=== PATIENT | male | born 1980 | race Caucasian/White ===

== ENCOUNTER 2019-12-19 09:51 | Outpatient (NON) | payer OTHER, SELFPAY ==
[2019-12-19 23:54] LABS: SARS-CoV-2 RNA PCR Negative
== END 2019-12-19 09:52 ==
PROVIDERS: Visit Provider Family Medicine
DX: Z20.828 Contact with and (suspected) exposure to other viral communicable diseases (principal); R11.0 Nausea; R19.7 Diarrhea, unspecified; R43.2 Parageusia; R43.0 Anosmia; M79.10 Myalgia, unspecified site
CPT/HCPCS: 87635; C9803; U0003

== ENCOUNTER 2020-08-24 08:56 | Outpatient (CLI) | payer BC, SELFPAY ==
--- NOTE | ~2020-08-24 | US_ITS ---
EXAMINATION: US abdomen complete DATE: 08/24/2020 09:42 INDICATION: Left upper quadrant abdominal pain. TECHNIQUE: Multiple grayscale and Doppler ultrasound images of the abdomen were obtained. COMPARISON: None FINDINGS: The visualized portions of the head, body, and tail of the pancreas are normal. Abdominal a nallely is normal in caliber. Inferior vena cava is normal. There is a 1.5 cm hyperechoic mass in left h epatic lobe. No liver surface nodularity. There is normal flow in main portal vein. The gallbladder i s normal in size. No gallstones or gallbladder wall thickening. There was no sonographic Ashby sign. The common duct is normal and measures 3 mm. The spleen is normal in size. The kidneys are normal in size. IMPRESSION: 1. 1.5 cm hyperechoic liver mass. In the absence of known malignancy or chronic liver disease, this f inding is likely a benign lesion such as a hemangioma. Reviewed, dictated and finalized at location A. IMPRESSION: 1. 1.5 cm hyperechoic liver mass. In the absence of known malignancy or chronic liver disease, this finding is likely a benign lesion such as a hemangioma.
== END 2020-08-24 08:57 ==
PROVIDERS: PCP Family Medicine; Visit Provider Nurse Practitioner Family
DX: R10.9 Unspecified abdominal pain (principal)
CPT/HCPCS: 76700

== ENCOUNTER 2020-08-24 09:24 | Outpatient (CLI) | payer BC, SELFPAY ==
[2020-08-24 10:14] LABS: Alanine Aminotransferase 35 U/L (4-50); Albumin Level 4.6 g/dL (3.5-5.1); Alkaline Phosphatase 68 U/L (38-126); Amylase 57 U/L (30-110); Anion Gap 5 mmol/L (8-16); Aspartate Amino Transferase 30 U/L (17-59); Bilirubin,Total 0.4 mg/dL (0.2-1.3); Blood Urea Nitrogen 10 mg/dL (9-20); Carbon Dioxide 31 mmol/L (22-30); Chloride 101 mmol/L (98-107); Cholesterol 192 mg/dL (0-200); Estimated Glomerular Filt Rate > 60; Glucose 101 mg/dL (75-110); HDL Direct 70 mg/dL; Lipase 37 U/L (23-300); Potassium 4.4 mmol/L (3.4-5.0); Sodium 137 mmol/L (137-145); Triglycerides 79 mg/dL (<150)
[2020-08-24 10:24] LABS: LDL Cholesterol Direct 92 mg/dL
[2020-08-24 10:41] LABS: Hematocrit 49.7 % (42.0-52.0); Mean Corpuscular HGB Conc 34.2 g/dl (32-36); Mean Corpuscular Hemoglobin 31.8 pg (26-34); Mean Corpuscular Volume 93.1 fl (80-100); Platelet Count Result 186 k/mm3 (150-375); Red Blood Count 5.34 M/mm3 (4.6-6.20); Red Cell Distribution Width 13.1 % (11.5-14.5); White Blood Count 5.6 K/mm3 (4.5-10.0)
[2020-08-24 10:44] LABS: Prostate Specific Antigen 0.4 ng/mL (< OR = 4.0)
== END 2020-08-24 09:25 | disposition home or self-care (01) ==
PROVIDERS: PCP Family Medicine; Visit Provider Nurse Practitioner Family
DX: Z12.5 Encounter for screening for malignant neoplasm of prostate (principal); Z13.220 Encounter for screening for lipoid disorders; R10.9 Unspecified abdominal pain; Z72.0 Tobacco use
CPT/HCPCS: 36415; 80053; 80061; 82150; 83690; 84153; 85027; G0103

== ENCOUNTER 2021-06-25 11:45 | Outpatient (CLI) | payer SELFPAY ==
--- NOTE | ~2021-06-25 | XR_ITS ---
XR chest 2V DATE: 06/25/2021 12:00 INDICATION: Chronic cough TECHNIQUE: 2 views COMPARISON: None FINDINGS: Normal heart size. No hilar or mediastinal enlargement. The lungs are hyperinflated. No pul monary infiltrate or consolidation, pleural effusion or pulmonary vascular congestion or pneumothorax . IMPRESSION: Bilateral hyperinflation; no active cardiopulmonary disease Reviewed, dictated and finalized at location A. [employer]
== END 2021-06-25 11:46 ==
PROVIDERS: Visit Provider Nurse Practitioner Family
DX: R05.3 Chronic cough (principal); R91.8 Other nonspecific abnormal finding of lung field
CPT/HCPCS: 71046

== ENCOUNTER 2021-11-18 15:53 | Outpatient (CLI) | payer SELFPAY ==
[2021-11-18 16:15] LABS: Hematocrit 45.6 % (42.0-52.0); Hemoglobin 15.2 g/dL (14.0-18.0); Mean Corpuscular HGB Conc 33.3 g/dl (32-36); Mean Corpuscular Hemoglobin 31.6 pg (26-34); Mean Corpuscular Volume 94.8 fl (80-100); Mean Platelet Volume 10.9 fl (7.4-10.4); Platelet Count Result 197 k/mm3 (150-375); Red Blood Count 4.81 M/mm3 (4.6-6.20); Red Cell Distribution Width 14.1 % (11.5-14.5); White Blood Count 7.6 K/mm3 (4.5-10.0)
[2021-11-18 16:22] LABS: Appearance Urine Clear (Clear); Bilirubin Urine Negative (Negative); Blood Urine Negative (Negative); Color Urine Yellow (Yellow); Glucose Urine UA Trace mg/dL (Negative); Ketones Urine Negative (Negative); Leukocyte Esterase Ur Negative LEU/UL (NEGATIVE); Nitrate Urine Negative (Negative); Protein Urine Negative (Negative); Specific Grav Ur 1.025 (1.001-1.035); Urobilinogen Urine 0.2 mg/dL (<2.0)
[2021-11-18 16:58] LABS: Mucus Urine Rare /lpf; RBC Urine 0-2 /hpf (0-2); WBC Urine 0-3 /hpf (0-3)
[2021-11-18 17:03] LABS: Add Urine Microscopic? YES
[2021-11-18 18:27] LABS: Alanine Aminotransferase 71 U/L (6-50); Albumin Level 4.4 g/dL (3.5-5.1); Alkaline Phosphatase 90 U/L (38-126); Anion Gap 7 mmol/L (8-16); Aspartate Amino Transferase 70 U/L (17-59); Bilirubin,Total < 0.1 mg/dL (0.2-1.3); Blood Urea Nitrogen 12 mg/dL (9-20); Calcium 8.5 mg/dL (8.4-10.2); Carbon Dioxide 26 mmol/L (22-30); Chloride 102 mmol/L (98-107); Creatine Kinase 116 U/L (55-170); Estimated Glomerular Filt Rate > 60; Glucose 42 mg/dL (65-110); Potassium 4.1 mmol/L (3.4-5.0); Sodium 135 mmol/L (137-145)
== END 2021-11-18 15:54 | disposition home or self-care (01) ==
LOC: ANHLAB 15:55
PROVIDERS: PCP Family Medicine; Visit Provider Nurse Practitioner Family
DX: M79.10 Myalgia, unspecified site (principal); R53.83 Other fatigue; R68.83 Chills (without fever)
CPT/HCPCS: 36415; 80053; 81001; 82550; 83874; 85027

== ENCOUNTER 2022-05-19 09:52 | Emergency (ER) | payer OTHER, SELFPAY ==
[2022-05-19 10:01] VITALS: BP 122/82; PULSE 89; RESP 16; TEMP 36.4; O2SAT 100
[2022-05-19 11:15] LABS: Add Urine Microscopic? YES; Appearance Urine Cloudy (Clear); Bilirubin Urine Negative (Negative); Blood Urine Negative (Negative); Color Urine Yellow (Yellow); Glucose Urine UA Negative (Negative); Ketones Urine Negative (Negative); Leukocyte Esterase Ur Negative LEU/UL (Negative); Nitrate Urine Negative (Negative); Protein Urine Negative (Negative); Specific Grav Ur 1.015 (1.001-1.035); Urobilinogen Urine 0.2 mg/dL (<2.0); pH Urine 7.5 (5.0-9.0)
[2022-05-19 11:15] LABS: Basophils Absolute Auto 0.1 K/mm3 (0.0-0.1); Basophils Percent Auto 0.4 % (0.2-1.2); Eosinophils Absolute Auto 0.3 K/mm3 (0-0.3); Eosinophils Percent Auto 2.3 % (0-4.4); Hematocrit 45.2 % (42.0-52.0); Hemoglobin 15.2 g/dL (14.0-18.0); Immature Granulocyte Absolute 0.04 K/mm3 (0.00-0.031); Immature Granulocyte Percent A 0.3 % (0-0.5); Lymphocytes Absolute Auto 2.32 K/mm3 (0.9-3.2); Lymphocytes Percent Auto 16.4 % (18.3-44.2); Mean Corpuscular HGB Conc 33.6 g/dl (32-36); Mean Corpuscular Hemoglobin 31.9 pg (26-34); Monocytes Absolute Auto 1.1 K/mm3 (0.1-0.6); Neutrophils Absolute Auto 10.3 K/mm3 (1.3-6.7); Neutrophils Percent Auto 72.6 % (45.5-73.1); Platelet Count Result 243 k/mm3 (150-375); Red Blood Count 4.76 M/mm3 (4.6-6.20); Red Cell Distribution Width 13.6 % (11.5-14.5); White Blood Count 14.1 K/mm3 (4.5-10.0)
[2022-05-19 11:26] LABS: Alanine Aminotransferase 30 U/L (6-50); Albumin Level 4.6 g/dL (3.5-5.1); Alkaline Phosphatase 84 U/L (38-126); Anion Gap 5 mmol/L (8-16); Aspartate Amino Transferase 25 U/L (17-59); Bilirubin,Total 0.4 mg/dL (0.2-1.3); Blood Urea Nitrogen 16 mg/dL (9-20); Calcium 9.3 mg/dL (8.4-10.2); Carbon Dioxide 30 mmol/L (22-30); Chloride 100 mmol/L (98-107); Estimated CRCL calculation 118 ml/min; Estimated Glomerular Filt Rate > 60; Glucose 99 mg/dL (65-110); Lipase 72 U/L (23-300); Sodium 135 mmol/L (137-145)
[2022-05-19 11:34] LABS: Amorphous Sediment Urine Few
[2022-05-19 12:14] VITALS: BP 123/79; PULSE 79; RESP 16; TEMP 36.7; O2SAT 98
--- NOTE | 2022-05-19 14:51 | PC.NURSE ---
Patient states he called his PCP office and they will get him in today. Patient verbalized understanding to return to ED if symptoms worsen or continue. Patient ambulated out of ED with a steady gait and with all belongings.
== END 2022-05-19 14:51 | disposition left against medical advice (07) ==
PROVIDERS: Emergency Provider Emergency Medicine; PCP Family Medicine
DX: R10.31 Right lower quadrant pain (principal)
CPT/HCPCS: 36415; 80053; 81001; 83690; 85025; 99199

== ENCOUNTER 2024-07-14 12:35 | Outpatient (CLI) | payer OTHER, SELFPAY | END 2024-07-14 12:36 | disposition home or self-care (01) | PROVIDERS: PCP Family Medicine; Visit Provider Family Medicine | DX: M75.111 Incomplete rotator cuff tear or rupture of right shoulder, not specified as traumatic (principal); M94.211 Chondromalacia, right shoulder; M75.21 Bicipital tendinitis, right shoulder; M25.411 Effusion, right shoulder; M75.51 Bursitis of right shoulder; M19.011 Primary osteoarthritis, right shoulder | CPT/HCPCS: 73221 ==

== ENCOUNTER 2025-03-06 02:19 | Day surgery (SDC) | payer OTHER, SELFPAY ==
[2025-02-27 10:38] VITALS: BMI 22.4
--- OUTSIDE RECORDS SUMMARY | 2025-03-06 02:21 | XMS_ITS | Clinical Summary ---
Author Organization [facility] Address [address] [place] [address] Care Team Providers Care Saturation Diver Name Role Phone Waqar Seo MD Primary Care Provider [phone] Allergies No known active allergies Social History Tobacco Use Types Packs/Day Years Used Date Smoking Tobacco: Never Assessed Personal Safety Answer Date Recorded Have you ever been in or are you currently in a harmful physical or emotional relationship or is someone making you feel afraid or unsafe? Denies 06/06/2024 Sex and Gender Information Value Date Recorded Sex Assigned at Not on file Legal Sex Male 10:30 PM [employer]ATIONAL [employer] Gender Identity Not on file Sexual Orientation Not on file Last Filed Vital Signs Vital Sign Reading Time Taken Comments Blood Pressure 149/89 06/06/2024 10:25 PM V[employer]ATIONAL ED INSTRUCTOR Pulse 85 06/06/2024 10:25 PM VOCATIONAL ED INSTRUCTOR Temperature 36.2 C (97.1 F) 06/06/2024 10:25 PM VOCATIONAL ED INSTRUCTOR Respiratory Rate 18 06/06/2024 10:25 PM VOCATIONAL ED INSTRUCTOR Oxygen Saturation 100% 06/06/2024 10:25 PM VOCATIONAL ED INSTRUCTOR Inhaled Oxygen Concentration - - Weight 65.6 kg (144 lb 10 oz) 06/06/2024 7:55 PM VOCATIONAL ED INSTRUCTOR Height - - Body Mass Index - - Plan of Treatment Health Maintenance Due Date Last Done Comments Colon Cancer Screening-Colonoscopy 1979 Depression Screening 1979 Hepatitis C Screening 1979 Varicella Vaccines (1 of 2 - 13+ 2-dose series) 10/02/1992 Hepatitis B Screening 10/02/1997 Regular Well Visit/Exam 18-64 10/02/1997 HPV Vaccines (1 - 3-dose SCD M series) 10/02/2006 DTaP/Tdap/Td Vaccine (2 - Td or Tdap) 05/05/2024 05/05/2014, 12/06/1993 Influenza Vaccine (#1) 2025 Pneumococcal vaccine <65 Aged Out No longer eligible based on patient's age to complete this topic Insurance [employer] SIG [id number] Care Teams Saturation Diver Relationship Specialty Start Date End Date Waqar Seo MD [address] [place] [address] PCP - General Family Medicine 06/06/24
[2025-03-06 08:14] VITALS: BP 107/72; PULSE 80; RESP 16; TEMP 36.5; O2SAT 100; BMI 19.9
[2025-03-06] MEDS: LACTATED RINGERS 1,000 ML 150 ML IV CONT (08:26)
--- NOTE | 2025-03-06 08:58 | PM.IMHP ---
H&P: HPI History of Present Illness Date/Time: 03/06/25 08:58 Chief Complaint: Screening colonoscopy Narrative: This is the patient's first colonoscopy. There are no GI symptoms and there is no family history of colorectal cancer. Review of Systems Review of Systems: All systems reviewed & are unremarkable except as noted in HPI and below PMFSH Past Medical History Medical History Appendix abscess BMI less than 19,adult BMI 22.0-22.9, adult Family History Family History Father Diabetes mellitus Malignant neoplasm of prostate Mother Acute myocardial infarction Sibling No problems noted. 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 Gender identity (if verbalized by the patient): Male Meds Home Medications and Allergies Home Medications ?Medication ?Instructions ?Recorded ?Confirmed ?Type cyclobenzaprine 10 mg tablet 10 mg PO TID PRN muscle spasm #30 01/27/25 02/27/25 Rx tabs ondansetron HCl 4 mg tablet 4 mg PO Q8H PRN nausea and 01/27/25 02/27/25 Rx vomiting #20 tabs sildenafil 50 mg tablet (Viagra) 50 mg PO DAILY PRN sexual activity 01/27/25 02/27/25 Rx #9 tabs dextroamphetamine-amphetamine 30 30 mg PO BID #60 tabs 02/03/25 03/06/25 Rx mg tablet (Adderall) diclofenac sodium 50 mg 50 mg PO BID #60 tabs 02/24/25 03/06/25 Rx tablet,delayed release Allergies Allergy/AdvReac Type Severity Reaction Status Date / Time No Known Allergies Allergy Verified 03/06/25 08:21 Vital Signs Vital Signs - 24 hr 03/06/25 08:14 Temperature 97.7 F Pulse Rate 80 Respiratory Rate 16 Blood Pressure 107/72 Pulse Oximetry 100 Oxygen Delivery Room Air Exam Const: General: cooperative and healthy appearing Resp: Effort & Inspection: normal respiratory effort and able to speak in complete sentences Auscultation: clear to auscultation bilaterally Cardio: Rate: regular rate Rhythm: regular rhythm GI: Inspection: normal to inspection GI Palp: No No hepatosplenomegaly present Auscultation: normal bowel sounds Rectal Exam: deferred Skin: General skin exam: normal color Psych: Appearance: grossly normal Mental Status: mental status grossly normal Assessment and Plan Assessment and plan (1) Encounter for screening colonoscopy: Code(s): Z12.11 - Encounter for screening for malignant neoplasm of colon Status: Acute Assessment and Plan: The patient is deemed a good candidate for the procedure. Consent signed. Will proceed.
--- NOTE | 2025-03-06 09:00 | P.PNAN_ITS ---
Anes - Initial Pre Proc Eval Procedure: Operation Date: 03/06/25 09:30 Proposed Procedures p Screening Colonoscopy - Ariel Ulloa MD Date/Time: 03/06/25 09:00 Surgeon: Ariel Ulloa MD Pre Op Diagnosis: screening Patient Data Age: 44 Gender: M Height: 1.75 m Weight: 61.3 kg Last Vital Signs Temp 36.5 C 03/06/25 08:14 Pulse 80 03/06/25 08:14 Resp 16 03/06/25 08:14 BP 107/72 03/06/25 08:14 Pulse Ox 100 03/06/25 08:14 O2 Del Method Room Air 03/06/25 08:14 Allergies Allergy/AdvReac Type Severity Reaction Status Date / Time No Known Allergies Allergy Verified 03/06/25 08:21 Home Medications ?Medication ?Instructions ?Recorded ?Confirmed ?Type cyclobenzaprine 10 mg tablet 10 mg PO TID PRN muscle s pasm #30 01/27/25 02/27/25 Rx tabs ondansetron HCl 4 mg tablet 4 mg PO Q8H PRN nausea and 01/27/25 02/27/25 Rx vomiting #20 tabs sildenafil 50 mg tablet (Viagra) 50 mg PO DAILY PRN se xual activity 01/27/25 02/27/25 Rx #9 tabs dextroamphetamine-amphetamine 30 30 mg PO BID #60 tabs 02/03/25 03/06/25 Rx mg tablet (Adderall) diclofenac sodium 50 mg 50 mg PO BID #60 tabs 03/06/25 Rx tablet,delayed release Patient hx anesthesia problems: none Family hx anesthesia problems: none Results Review: All pre-operative results and documents have been reviewed as part of the pre- operative evaluation. [facility] Past Medical History Medical History Appendix abscess BMI less than 19,adult BMI 22.0-22.9, adult Family History Family History Father Diabetes mellitus Malignant neoplasm of prostate Mother Acute myocardial infarction Sibling No problems noted. 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 Informed Consent: The patient's anesthetic plan and its attendant risks and benefits were discussed with the patient/family/POA. Questions were solicited and answers provided to the satisfaction of the patient/family/POA.
[2025-03-06 09:21] VITALS: BP 97/64; PULSE 67; RESP 18; O2SAT 100
[2025-03-06 09:31] VITALS: BP 113/78; PULSE 62; RESP 17; O2SAT 99
[2025-03-06 09:41] VITALS: BP 115/86; PULSE 85; RESP 20; O2SAT 99
== END 2025-03-06 09:49 | disposition home or self-care (01) ==
PROVIDERS: PCP Family Medicine; Visit Provider Internal Medicine Gastroenterology
PROC: 0DJD8ZZ Inspection of Lower Intestinal Tract, Via Natural or Artificial Opening Endoscopic (ICD-10-PCS; CPT 45378; principal; 2025-03-06 09:30)
DX: Z12.11 Encounter for screening for malignant neoplasm of colon (principal); F17.210 Nicotine dependence, cigarettes, uncomplicated
CPT/HCPCS: 45378; J2704; J7120